=== PATIENT | female | born 1990 | race African-American/Black ===

== ENCOUNTER 2020-11-05 02:45 | Observation (INO) | payer OTHER ==
[~2020-11-05] VITALS: Ht 165.1 cm; Wt 63.5 kg
[2020-11-05 04:14] VITALS: BP 101/58
[2020-11-05 09:09] LABS: COVID AG,FIA SOURCE NASOPHARYNGEAL
== END 2020-11-05 05:00 ==
LOC: 4S 02:45
PROVIDERS: ADMIT Student in an Organized Health Care Education/Training Program; ATTEND Student in an Organized Health Care Education/Training Program
DX: O98.512 Other viral diseases complicating pregnancy, second trimester (principal); U07.1 COVID-19; O26.892 Other specified pregnancy related conditions, second trimester; R10.9 Unspecified abdominal pain; Z3A.27 27 weeks gestation of pregnancy; Z79.899 Other long term (current) drug therapy
CPT/HCPCS: 59025; 76805; 80307; 87426; 99219